=== PATIENT | female | born 1985 | race Caucasian/White ===

== ENCOUNTER → 2019-05-24 12:03 | Outpatient (CLI) | payer OTHER, SELFPAY ==
[2019-05-24 16:38] LABS: Amylase 34 U/L (25-115); Gamma Glutamyl Transpeptidase 26 U/L (5-55); Lipase 144 u/L (73-393)
[2019-05-25 23:37] LABS: H. pylori Breath Test Negative (Negative)
== END ==
PROVIDERS: Visit Provider Nurse Practitioner Family
DX: R10.10 Upper abdominal pain, unspecified (principal); R10.13 Epigastric pain
CPT/HCPCS: 36415; 82150; 82977; 83013; 83690

== ENCOUNTER → 2019-06-02 09:18 | Outpatient (CLI) | payer OTHER, SELFPAY ==
--- NOTE | 2019-06-02 09:24 | MR_ITS ---
PROCEDURE: MR ABDOMEN WO/W CON CLINICAL INDICATION: LIVER MASSES COMPARISON: ABDPELW/O CT ABD PELVIS W/O CONTRAST from 06/04/2014 RUQ US RUQ-(ABD LTD)1ORGAN/QUAD/FU from 06/09/2014 CT ABDOMEN PELVIS WO CON from 05/23/2019 TECHNIQUE: Routine multi-echo and multiplanar images including inphase and out of phase images and contrasted images with arterial and delayed venous imaging. FINDINGS: Again seen are the 4 hepatic lesions the largest in the right hepatic lobe is 4.0 centimeters. On the initial arterial phase images there is the typical peripheral interrupted nodular enhancement pattern with gradual complete opacification on delayed images although the larger right hepatic lobe lesion does not completely opacified on the most delayed contrasted images. Pancreas, spleen, adrenal glands and kidneys are otherwise normal except there is a 5.0 millimeter round cyst involving the lower pole area of the left kidney. There is no abnormal adenopathy or ascites. IMPRESSION: The liver lesions as described above are consistent with cavernous hemangiomas. Dictated by: Baltazar Hernandez 06/02/2019 11:17 Electronically signed by Baltazar Hernandez in [place] 06/02/2019 11:17
== END ==
PROVIDERS: PCP Family Medicine; Visit Provider Nurse Practitioner Family
DX: R16.0 Hepatomegaly, not elsewhere classified (principal)
CPT/HCPCS: 74183; A9576

== ENCOUNTER 2020-01-09 17:41 | Emergency (ER) | payer OTHER, SELFPAY ==
[2020-01-09 18:12] VITALS: BP 132/90; PULSE 86; RESP 20; TEMP 36.9; O2SAT 97; BMI 38.7
--- NOTE | 2020-01-09 18:31 | HMH.EDUTC ---
[facility] [place] Disposition Clinical Impression: Migraine headache Qualifiers: Migraine type: with aura Status migrainosus presence: without status migrainosus Intractability: not intractable Qualified Code(s): G43.109 - Migraine with aura, not intractable, without status migrainosus Disposition: Home, Self-Care Condition on Discharge: Good Instructions: DI for Migraine Additional Instructions: Follow up with your regular doctor. GO TO THE ER FOR ANY WORSENING SYMPTOMS OR CONCERNS Prescriptions: SUMAtriptan succinate [Imitrex] 50 mg PO DAILYP PRN #20 tab PRN Reason: Migraine Headache Transmission Status: Received by [id number] Referrals: Russ Colby MD [Primary Care Provider] - Time of Disposition: 19:13 Medical Decision Making - Medical Records Medical records reviewed: No: I reviewed the patient's medical records. - Dell Inquiry Pt receiving controlled substance: No Vital Signs: 01/09/20 18:12 01/09/20 18:54 Temperature 98.4 F 98.4 F Temperature Source Oral Pulse Rate 86 Pulse Rate [Left Brachial] 86 Respiratory Rate 20 20 Blood Pressure 132/90 Blood Pressure [Left Arm] 132/90 Blood Pressure Mean [Left Arm] 104 Blood Pressure Source [Left Arm] Automatic Cuff Blood Pressure Position [Left Arm] Sitting 02 Sat by Pulse Oximetry 97 Oxygen Delivery Method Room Air Orders (Tests/Meds): ED MEDICATIONS Discontinued Medications Generic Name Dose Route Start Last Admin Trade Name Freq PRN Reason Stop Dose Admin Ketorolac Tromethamine 60 mg 01/09/20 18:35 01/09/20 18:46 Toradol 60mg/2ml Vial IM 01/09/20 18:36 60 mg ONCE ONE Administration Methylprednisolone Sodium Succinate 125 mg 01/09/20 18:35 01/09/20 18:45 Solu-Medrol 125mg/2ml Vial IM 01/09/20 18:36 125 mg ONCE ONE Administration Promethazine HCl 25 mg 01/09/20 18:35 01/09/20 18:46 Phenergan 25mg/Ml 1ml Vial IM 01/09/20 18:36 25 mg ONCE ONE Administration Sodium Chloride 25 ml 01/09/20 18:35 01/09/20 18:46 Sod Chlor 0.9% 25ml Bag IV 01/09/20 18:36 Not Given ONCE ONE [facility] [place] HPI - General Stated complaint: Migraine X 3 days Time Seen by Provider: 01/09/20 18:31 Mode of Arrival: Ambulatory Source of Information: Patient Limitations: No Limitations Description of Symptoms (Recalled from Triage Doc. by RN): PATIENT C/O MIGRAINE WITH NAUSEA AND LIGHT SENSITIVITY X 3 DAYS. STATES IT STARTED 2 DAYS AFTER STARTING NEW MEDS FOR FIBRO. SHE HAS TAKE TYLENOL AND MOTRIN AT HOME WITH NO RELIEF HEENT Symptoms (Recalled from RN notes): Yes Resp Symptoms (Recalled from RN notes): No Skin Symptoms (Recalled from RN notes): No MS Symptoms (Recalled from RN notes): No Functional Status (Recalled from RN notes): WNL - History of Present Illness Provider Complaint: She c/o migraine head ache symptoms for the past 3 days. She is out of the sumatriptan that she normally takes. - Related Data Previous Rx's Medication Instructions Recorded amoxicillin 500 mg capsule 500 mg PO Q12H 10 Days #20 cap 06/05/18 Ketorolac Tromethamine [Toradol 10 mg PO Q6H 5 Days #20 tab 05/23/19 10mg tablet] SUMAtriptan succinate [Imitrex] 50 mg PO DAILYP PRN #20 tab 01/09/20 Allergies Allergy/AdvReac Type Severity Reaction Status Date / Time No Known Allergies Allergy Verified 01/09/20 18:16 - Worker's Comp Is this a Worker's Comp case?: No [facility] History - Hepatitis A Screen Drug use history?: No High risk sexual behaviors?: No History of sexually transmitted infection?: No Currently employed?: No Childcare worker?: No Do you have indoor plumbing?: Yes Do you have electricity?: Yes Attestation statement:: This patient has been screened for Hepatitis A risk factors. I have reviewed the patient's past medical history: Yes Medical History: Reports:: Migraine Other Surgeries: Yes: Cholecystectomy, , Tubal Ligation Amputation: No Fractures: No - Social History Smokandra
[2020-01-09 18:54] VITALS: BP 132/90; PULSE 86; RESP 20; TEMP 36.9; O2SAT 97
== END 2020-01-09 19:26 | disposition home or self-care (01) ==
PROVIDERS: Emergency Provider Nurse Practitioner Family; PCP Family Medicine
DX: G43.109 Migraine with aura, not intractable, without status migrainosus (principal); F17.210 Nicotine dependence, cigarettes, uncomplicated
CPT/HCPCS: 96372; 99201

== ENCOUNTER 2020-05-28 18:33 | Emergency (ER) | payer OTHER, SELFPAY ==
[2020-05-28 18:50] VITALS: BP 137/84; PULSE 81; RESP 19; TEMP 36.9; O2SAT 99; BMI 37.3
--- NOTE | 2020-05-28 19:37 | HMH.EDUTC ---
[facility] [place] Disposition Clinical Impression: Migraine headache Qualifiers: Migraine type: unspecified Status migrainosus presence: without status migrainosus Intractability: not intractable Qualified Code(s): G43.909 - Migraine, unspecified, not intractable, without status migrainosus Disposition: Home, Self-Care Condition on Discharge: Good Instructions: Migraine -- Adult, DI for Migraine Additional Instructions: Go home and lay down and try to sleep off remainder of migraine headache *Follow up with your Family Doctor for further treatment and evaluation of migraine headaches Return if needed Straight to ER if any life threatening symptoms Referrals: Russ Colby MD [Primary Care Provider] - As needed Time of Disposition: 19:47 Medical Decision Making - Dell Inquiry Pt receiving controlled substance: No Dell was queried for this patient: No Vital Signs: 05/28/20 18:50 05/28/20 19:56 Temperature 98.4 F 98.4 F Temperature Source Oral Pulse Rate 81 Pulse Rate [Right Brachial] 81 Respiratory Rate 19 19 Blood Pressure 137/84 Blood Pressure [Right Arm] 137/84 Blood Pressure Mean [Right Arm] 101 Blood Pressure Source [Right Arm] Automatic Cuff Blood Pressure Position [Right Arm] Sitting 02 Sat by Pulse Oximetry 99 Oxygen Delivery Method Room Air Orders (Tests/Meds): ED MEDICATIONS Discontinued Medications Generic Name Dose Route Start Last Admin Trade Name Evelioq PRN Reason Stop Dose Admin Diphenhydramine HCl 25 mg 05/28/20 19:40 05/28/20 19:45 Diphenhydramine 50mg/Ml Vial IM 05/28/20 19:41 25 mg ONCE ONE Administration Ketorolac Tromethamine 60 mg 05/28/20 19:40 05/28/20 19:45 Ketorolac 60mg/2ml Vial IM 05/28/20 19:41 60 mg ONCE ONE Administration Ondansetron HCl 4 mg 05/28/20 19:40 05/28/20 19:45 Ondansetron 4mg Odt SL 05/28/20 19:41 4 mg ONCE ONE Administration Medical Decision Narrative: patient denies chance of States that she has had Torodol, zofran and benadryl in the past without complications or reactions Mother at the bedside Patient states that her headache is better after medication patient to be dcd home [facility] [place] HPI - General Stated complaint: migraine Time Seen by Provider: 05/28/20 19:37 Mode of Arrival: Ambulatory Source of Information: Patient Limitations: No Limitations Description of Symptoms (Recalled from Triage Doc. by RN): PATIENT C/O MIGRAINE X 2 DAYS HEENT Symptoms (Recalled from RN notes): Yes Resp Symptoms (Recalled from RN notes): No Skin Symptoms (Recalled from RN notes): No MS Symptoms (Recalled from RN notes): No Functional Status (Recalled from RN notes): WNL - History of Present Illness Provider Complaint: Patient states that she has a history of migraine headaches States that for the last 2 days she has been having a migraine States that she usually has one when she gets stressed and with the idays she has been under stress States that this migraine is like others she has had in the past that she has had to come in to get the migraine coctail - Related Data Home Medications Medication Instructions Recorded Confirmed Duloxetine HCl [Cymbalta] 30 mg PO DAILY 05/28/20 05/28/20 Allergies Allergy/AdvReac Type Severity Reaction Status Date / Time No Known Allergies Allergy Verified 01/09/20 18:16 - Worker's Comp Is this a Worker's Comp case?: No [facility] History - Hepatitis A Screen Drug use history?: No High risk sexual behaviors?: No History of sexually transmitted infection?: No Currently employed?: No Childcare worker?: No Do you have indoor plumbing?: Yes Do you have electricity?: Yes Attestation statement:: This patient has been screened for Hepatitis A risk factors. I have reviewed the patient's past medical history: Yes Medical History: Reports:: Migraine Other Surgeries: Yes: Cholecystectomy, , Tubal Ligation Amputation: No Fractures: No - Social History Sm
[2020-05-28 19:56] VITALS: BP 137/84; PULSE 81; RESP 19; TEMP 36.9; O2SAT 99
== END 2020-05-28 19:59 | disposition home or self-care (01) ==
PROVIDERS: Emergency Provider Nurse Practitioner; PCP Family Medicine
DX: G43.909 Migraine, unspecified, not intractable, without status migrainosus (principal); F17.210 Nicotine dependence, cigarettes, uncomplicated
CPT/HCPCS: 96372; 99201

== ENCOUNTER 2020-05-30 17:45 | Emergency (ER) | payer OTHER, SELFPAY ==
[2020-05-30 18:00] VITALS: BP 129/79; PULSE 94; RESP 20; TEMP 37; O2SAT 99; BMI 36.9
--- NOTE | 2020-05-30 18:22 | HMH.EDUTC ---
[facility] [place] Disposition Clinical Impression: Exposure to COVID-19 virus Disposition: Home, Self-Care Condition on Discharge: Good Instructions: Preventing the Spread of Coronavirus Discharge Instructions Additional Instructions: Drink plenty of fluids. Take tylenol for pain or fever. Follow up with your regular doctor. GO TO THE ER FOR ANY WORSENING SYMPTOMS Referrals: Russ Colby MD [Primary Care Provider] - Time of Disposition: 18:23 Medical Decision Making - Medical Records Medical records reviewed: No: I reviewed the patient's medical records. - Dell Inquiry Pt receiving controlled substance: No Vital Signs: 05/30/20 18:00 05/30/20 18:24 Temperature 98.6 F 98.6 F Temperature Source Oral Pulse Rate 94 H Pulse Rate [Right Brachial] 94 H Respiratory Rate 20 20 Blood Pressure 129/79 Blood Pressure [Right Arm] 129/79 Blood Pressure Mean [Right Arm] 95 Blood Pressure Source [Right Arm] Automatic Cuff Blood Pressure Position [Right Arm] Sitting 02 Sat by Pulse Oximetry 99 Oxygen Delivery Method Room Air Orders (Tests/Meds): ORDERS Category Date Time Status Covid-19 Nasal PCR Sendout [facility] 05/30/20 18:00 Received [facility] [place] HPI - General Stated complaint: COVID TEST Time Seen by Provider: 05/30/20 18:22 Mode of Arrival: Ambulatory Source of Information: Patient Limitations: No Limitations Description of Symptoms (Recalled from Triage Doc. by RN): PATIENT REQUESTING COVID TEST D/T EXPOSURE; DENIES SYMPTOMS HEENT Symptoms (Recalled from RN notes): No Resp Symptoms (Recalled from RN notes): No Skin Symptoms (Recalled from RN notes): No MS Symptoms (Recalled from RN notes): No Functional Status (Recalled from RN notes): WNL - History of Present Illness Provider Complaint: She was exposed to covid at her work. She is here to get a covid test. She denies any symptoms. - Related Data Home Medications Medication Instructions Recorded Confirmed Duloxetine HCl [Cymbalta] 30 mg PO DAILY 05/28/20 05/28/20 Allergies Allergy/AdvReac Type Severity Reaction Status Date / Time No Known Allergies Allergy Verified 01/09/20 18:16 - Worker's Comp Is this a Worker's Comp case?: No [facility] [place] History - Hepatitis A Screen Drug use history?: No High risk sexual behaviors?: No History of sexually transmitted infection?: No Currently employed?: No Childcare worker?: No Do you have indoor plumbing?: Yes Do you have electricity?: Yes Attestation statement:: This patient has been screened for Hepatitis A risk factors. I have reviewed the patient's past medical history: Yes Medical History: Reports:: Migraine Other Surgeries: Yes: Cholecystectomy, , Tubal Ligation Amputation: No Fractures: No - Social History Smoking Status: Current every day smoker Tobacco Type: cigarettes # Packs/Day (cigarettes): 1 Alcohol Intake: never Substance Use Type: denies use Occupational Status: other Housing: house Household Members: children Family Hx:: Stroke, Hypertension ROS Obtained: Yes All systems reviewed & no additional complaints - Constitutional Constitutional: Reports system reviewed and no additional complaints, except as docu - Eyes Eyes: Reports system reviewed and no additional complaints, except as docu - ENT Ears, Nose, Mouth, and Throat: Reports system reviewed and no additional complaints, except as docu - Cardiovascular Cardiovascular: Reports system reviewed and no additional complaints, except as docu - Respiratory Respiratory: Yes system reviewed and no additional complaints, except as docu - Gastrointestinal Gastrointestingal: Reports: system reviewed and no additional complaints, except as docu Physical Exam - General General appearance: alert, in no apparent distress - Head Head exam: atraumatic, normocephalic, normal inspection - Eye Eye exam: Present: normal appearance, PERRL, EOMI - ENT ENT exam: Present: normal ex
[2020-05-30 18:24] VITALS: BP 129/79; PULSE 94; RESP 20; TEMP 37; O2SAT 99
== END 2020-05-30 18:31 | disposition home or self-care (01) ==
PROVIDERS: Emergency Provider Nurse Practitioner Family; PCP Family Medicine
DX: Z20.828 Contact with and (suspected) exposure to other viral communicable diseases (principal); G43.909 Migraine, unspecified, not intractable, without status migrainosus
CPT/HCPCS: 99201; U0003; U0004

== ENCOUNTER → 2020-05-31 10:28 | Outpatient (CLI) | payer OTHER, SELFPAY ==
[2020-05-31 12:55] LABS: Coronavirus 19 IgG Antibody Negative (Negative); Coronavirus 19 IgM Antibody Negative (Negative)
== END ==
PROVIDERS: PCP Family Medicine; Visit Provider Nurse Practitioner Family
DX: Z03.818 Encounter for observation for suspected exposure to other biological agents ruled out (principal)
CPT/HCPCS: 86328

== ENCOUNTER → 2020-11-02 07:47 | Outpatient (CLI) | payer OTHER, SELFPAY ==
--- NOTE | 2020-11-02 07:53 | US_ITS ---
PROCEDURE: US ABDOMEN limited CLINICAL INDICATION: ABDOMINAL MASS COMPARISON: US RUQ US RUQ-(ABD LTD)1ORGAN/QUAD/FU from 03/14/2015 FINDINGS: There are multiple homogeneous solid masses within the abdominal wall. The largest masses in the right upper quadrant measuring 4.1 cm in length by 2.4 cm in with and 1.2 cm in thickness. It shows fairly well-defined the interface between the mass and the subcutaneous echogenicity. There are other smaller but similar appearing soft tissue masses with homogeneous echogenicity all slightly hyperechoic to the primarily fatty echogenicity of the subcutaneous tissue. The 2nd largest mass is in the inferior umbilical location measuring 2.8 cm in length by 1.5 x 1.1 cm. IMPRESSION: Multiple slightly hyperechoic solid masses with rather homogeneous echogenicity and multiple lipomas the is most likely possibility. Possibly follow-up CT scan of the abdomen and pelvis should be considered to better define the and topical appearance and overall number of the lesions. Dictated by: Dr. Clarke Acevedo MD 11/02/2020 13:51 Dr. Clarke Acevedo MD in [place] 11/02/2020 13:51
== END ==
PROVIDERS: PCP Family Medicine; Visit Provider Nurse Practitioner Family
DX: R19.07 Generalized intra-abdominal and pelvic swelling, mass and lump (principal)
CPT/HCPCS: 76700

== ENCOUNTER 2020-11-14 20:03 | Emergency (ER) | payer OTHER, SELFPAY ==
[2020-11-14 20:05] VITALS: BP 128/87; PULSE 94; RESP 18; TEMP 36.9; O2SAT 98; BMI 35.4
[2020-11-14 20:47] VITALS: BP 128/87; PULSE 94; RESP 18; TEMP 36.9; O2SAT 98
--- NOTE | 2020-11-14 20:47 | HMH.EDUTC ---
[facility] [place] Clinical Impression: Migraine Qualifiers: Migraine type: unspecified Status migrainosus presence: without status migrainosus Intractability: not intractable Qualified Code(s): G43.909 - Migraine, unspecified, not intractable, without status migrainosus Disposition: Home, Self-Care Condition on Discharge: Good Instructions: DI for Migraine Additional Instructions: Drink plenty of fluids. Take tylenol or ibuprofen for pain. Take the medications as directed. Follow up with your regular doctor. GO TO THE ER FOR ANY WORSENING SYMPTOMS Referrals: Russ Colby MD [Primary Care Provider] - Forms: Work/School Release Time of Disposition: 20:48 Medical Decision Making - Medical Records Medical records reviewed: No: I reviewed the patient's medical records. - Dell Inquiry Pt receiving controlled substance: No Vital Signs: 11/14/20 20:05 11/14/20 20:47 Temperature 98.4 F 98.4 F Temperature Source Oral Pulse Rate 94 H Pulse Rate [Right Brachial] 94 H Respiratory Rate 18 18 Blood Pressure 128/87 Blood Pressure [Right Arm] 128/87 Blood Pressure Mean [Right Arm] 100 Blood Pressure Source [Right Arm] Automatic Cuff Blood Pressure Position [Right Arm] Sitting 02 Sat by Pulse Oximetry 98 Oxygen Delivery Method Room Air Orders (Tests/Meds): ED MEDICATIONS Discontinued Medications Generic Name Dose Route Start Last Admin Trade Name Freq PRN Reason Stop Dose Admin Ketorolac Tromethamine 60 mg 11/14/20 20:20 11/14/20 20:35 Ketorolac 60mg/2ml Vial IM 11/14/20 20:21 60 mg ONCE ONE Administration Methylprednisolone Sodium Succinate 125 mg 11/14/20 20:20 11/14/20 20:35 Methylprednisolone Sod Succ 125mg Vial IM 11/14/20 20:21 125 mg ONCE ONE Administration Promethazine HCl 25 mg 11/14/20 20:21 11/14/20 20:35 Promethazine Hcl 25mg/Ml 1ml Vial IM 11/14/20 20:22 25 mg ONCE ONE Administration [facility] [place]PI - General Stated complaint: migrane Time Seen by Provider: 11/14/20 20:47 Mode of Arrival: Ambulatory Source of Information: Patient Limitations: No Limitations Description of Symptoms (Recalled from Triage Doc. by RN): PATIENT C/O MIGRAINE WITH NAUSEA AND LIGHT-SENSITIVITY X 3 DAYS HEENT Symptoms (Recalled from RN notes): Yes Resp Symptoms (Recalled from RN notes): No Skin Symptoms (Recalled from RN notes): No MS Symptoms (Recalled from RN notes): No Functional Status (Recalled from RN notes): WNL - History of Present Illness Provider Complaint: She states that she has had a migraine headache since yesterday. She has a history of migraine. She states that her imitrex has not helped today, even after taking the maximum dose earlier. - Related Data Home Medications Medication Instructions Recorded Confirmed Duloxetine HCl [Cymbalta] 120 mg PO DAILY 05/28/20 11/14/20 Allergies Allergy/AdvReac Type Severity Reaction Status Date / Time No Known Allergies Allergy Verified 01/09/20 18:16 - Worker's Comp Is this a Worker's Comp case?: No [facility] History - Hepatitis A Screen Drug use history?: No High risk sexual behaviors?: No History of sexually transmitted infection?: No Currently employed?: No Childcare worker?: No Do you have indoor plumbing?: Yes Do you have electricity?: Yes Attestation statement:: This patient has been screened for Hepatitis A risk factors. I have reviewed the patient's past medical history: Yes Medical History: Reports:: Migraine Other Surgeries: Yes: Cholecystectomy, , Tubal Ligation Amputation: No Fractures: No - Social History Smoking Status: Current every day smoker Tobacco Type: cigarettes # Packs/Day (cigarettes): 1 Alcohol Intake: never Substance Use Type: denies use Occupational Status: other Housing: house Household Members: children Family Hx:: Stroke, Hypertension ROS Obtained: Yes All systems reviewed & no additional complaints - Constitutional Constitut
== END 2020-11-14 20:50 | disposition home or self-care (01) ==
PROVIDERS: Emergency Provider Nurse Practitioner Family; PCP Family Medicine
DX: G43.909 Migraine, unspecified, not intractable, without status migrainosus (principal)
CPT/HCPCS: 96372; 99202; G0463

== ENCOUNTER 2020-11-15 16:04 | Emergency (ER) | payer OTHER, SELFPAY ==
[2020-11-15 16:05] VITALS: BP 162/72; PULSE 74; RESP 20; TEMP 36.8; O2SAT 98; BMI 36.9
[2020-11-15 16:17] VITALS: BP 162/72; PULSE 91; O2SAT 97
[2020-11-15 16:31] VITALS: BP 123/67; PULSE 89; O2SAT 99
[2020-11-15 17:01] VITALS: BP 106/63; PULSE 86; O2SAT 98
--- NOTE | 2020-11-15 17:14 | HMH.EDGENADL ---
ED Disposition Clinical Impression: Migraine Disposition: Home, Self-Care Condition on Discharge: Good Instructions: Migraine -- Adult Prescriptions: Prochlorperazine Maleate [Compazine] 10 mg PO TID PRN 5 Days #15 tab PRN Reason: Headache Transmission Status: Received by [id number] Referrals: Russ Colby MD [Primary Care Provider] - - Critical Care Critical Care Time: No Attestation: On 11/15/20, the high probability of a clinically significant, sudden or life threatening deterioration of the following system(s) required my full and direct attention, intervention and personal management. The time I documented below is in addition to time spent performing reported procedures but includes the following listed in this critical care notation. Medical Decision Making - Medical Records Medical records reviewed: Yes: I reviewed the patient's medical records. - Dell Inquiry Pt receiving controlled substance: No Vital Signs: 11/15/20 16:05 11/15/20 16:17 11/15/20 16:31 Temperature 98.2 F Temperature Source Oral Pulse Rate 91 H 89 Pulse Rate [Left Radial] 74 Respiratory Rate 20 Blood Pressure 162/72 H 123/67 Blood Pressure [Right Arm] 162/72 H Blood Pressure Mean 85 Blood Pressure Mean [Right Arm] 102 Blood Pressure Source Blood Pressure Source [Right Arm] Automatic Cuff Blood Pressure Position Blood Pressure Position [Right Arm] Sitting 02 Sat by Pulse Oximetry 98 97 99 Oxygen Delivery Method Room Air 11/15/20 17:01 11/15/20 17:26 Temperature 98.2 F Temperature Source Oral Pulse Rate 86 86 Pulse Rate [Left Radial] Respiratory Rate 16 Blood Pressure 106/63 L 106/63 L Blood Pressure [Right Arm] Blood Pressure Mean 77 Blood Pressure Mean [Right Arm] Blood Pressure Source Automatic Cuff Blood Pressure Source [Right Arm] Blood Pressure Position Sitting Blood Pressure Position [Right Arm] 02 Sat by Pulse Oximetry 98 Oxygen Delivery Method Room Air Orders (Tests/Meds): ED MEDICATIONS Discontinued Medications Generic Name Dose Route Start Last Admin Trade Name Freq PRN Reason Stop Dose Admin Dexamethasone Sodium Phosphate 8 mg 11/15/20 16:15 11/15/20 16:49 Dexamethasone 4mg/Ml 1ml Vial IV 11/15/20 16:16 8 mg ONCE ONE Administration Diphenhydramine HCl 25 mg 11/15/20 16:15 11/15/20 16:49 Diphenhydramine 50mg/Ml Vial IV 11/15/20 16:16 25 mg ONCE ONE Administration Sodium Chloride 1,000 mls @ 999 mls/hr 11/15/20 16:15 11/15/20 16:49 Sod Chlor 0.9% 1000ml Bag IV 11/15/20 17:15 999 mls/hr .Q1H1M OJSH Administration Metoclopramide HCl 10 mg 11/15/20 16:15 11/15/20 16:49 Metoclopramide Hcl 10mg/2ml Vial IVP 11/15/20 16:16 10 mg ONCE ONE Administration Medical Decision Narrative: 35-year-old female presents after migraine headache. She says that it did get better but then it has gradually worsened. She has no distress and has normal neurological exam no concern for meningitis cerebral venous thrombosis subarachnoid hemorrhage stroke or any other concerns. Given migraine meds here and she had marked improvement requesting to be discharged. Plan to discharge home with Compazine. And and recommendation for follow-up General Adult HPI - General Stated complaint: migrane Time Seen by Provider: 11/15/20 16:05 - History of Present Illness HPI narrative: 35-year-old female presents with migraine headache. She says that it got better yesterday when she was at the urgent care center however to get worse. She now has dull frontal headache throbbing nonradiating worse with light and sound and has associated with nausea typical of her headache. No thunderclap onset no fever no chills. No numbness weakness or tingling arms or legs Onset (ago): day(s) (4) Severity: moderate Consistency: intermittent - Related Data Home Medications Medication Instructions Recorded Confirmed Dulox
[2020-11-15 17:26] VITALS: BP 106/63; PULSE 86; RESP 16; TEMP 36.8; O2SAT 100
== END 2020-11-15 17:27 | disposition home or self-care (01) ==
PROVIDERS: Emergency Provider Emergency Medicine; PCP Family Medicine
DX: G43.909 Migraine, unspecified, not intractable, without status migrainosus (principal); F17.210 Nicotine dependence, cigarettes, uncomplicated
CPT/HCPCS: 96365; 96375; 99281

== ENCOUNTER → 2020-12-04 10:16 | Outpatient (CLI) | payer OTHER, SELFPAY ==
--- NOTE | 2020-12-04 10:22 | CT_ITS ---
PROCEDURE: CT ABDOMEN PELVIS W CON CLINICAL INDICATION: ABN ABD ULTRASOUND, GENERALIZED ABD MASS Multiple abdominal soft tissue nodules Tender at times Lt and rt upper abd marked with BBs Abnormal US 11/03/20 COMPARISON: CT CT ABDOMEN PELVIS WO CON from 05/23/2019 US US ABDOMEN COMPLETE from 11/02/2020 TECHNIQUE: IV Contrast: 75ML Isovue 370 Oral Contrast None Axial images obtained with sagittal and coronal reformats. All CT scans at the facility use one or more dose reduction, viz: automated exposure control, ma/kV adjustment per patient size (including targeted exams where dose is matched to indication, i.e. head), or iterative reconstruction technique. FINDINGS: LOWER THORAX: No acute finding ABDOMEN & PELVIS: There are multiple enhancing lesions of the liver. These have the appearance hemangiomas measuring 12 mm segment 2, 21 mm segment 4A, 48 mm, 21 mm segment 5. These do not appear significantly changed. Prior cholecystectomy. The spleen, adrenal glands, pancreas, and kidneys have an unremarkable appearance other than a 1 cm left renal cyst. No intestinal obstruction or free air. Unremarkable appearing appendix. 2.8 cm right ovarian cyst. Minimal amount of fluid in the cul-de-sac. Multiple abdominal wall masses are reported as seen and described on previous ultrasound. BBs are placed along at least 2 of these palpable abnormalities 1 in the left upper quadrant and 1 in the right upper quadrant. No visible CT abnormalities are evident deep to these lesions. Only abdominal wall fat is noted. No abnormal fluid collections or solid mass is apparent. No acute bony anomalies apparent. There are few small sclerotic foci noted in the femurs and may represent bone islands. IMPRESSION: 1. No visible CT abnormality at the area of the placed BBs/palpable abnormalities. Only abdominal wall fat noted deep to the placed BBs/palpable abnormalities. Therefore, the abnormalities noted on ultrasound are consistent with lipomas. No solid lesions or fluid collections evident 2. Multiple hepatic hemangiomas Dictated by: Randal Miranda MD 12/05/2020 07:41 Randal Miranda MD in [facility] 12/05/2020 07:41
== END ==
PROVIDERS: PCP Family Medicine; Visit Provider Family Medicine
DX: R19.07 Generalized intra-abdominal and pelvic swelling, mass and lump (principal); R93.5 Abnormal findings on diagnostic imaging of other abdominal regions, including retroperitoneum
CPT/HCPCS: 74177; Q9967

== ENCOUNTER → 2021-06-07 19:51 | Outpatient (CLI) | payer OTHER, SELFPAY | PROVIDERS: PCP Family Medicine; Visit Provider Nurse Practitioner Family | DX: Z20.822 Contact with and (suspected) exposure to COVID-19 (principal) | CPT/HCPCS: C9803; U0003; U0005 ==

== ENCOUNTER → 2021-06-21 12:13 | Outpatient (CLI) | payer OTHER, SELFPAY | PROVIDERS: Visit Provider Nurse Practitioner | DX: U07.1 COVID-19 (principal) | CPT/HCPCS: C9803; U0003; U0005 ==

== ENCOUNTER 2021-08-03 20:04 | Emergency (ER) | payer BC, OTHER, SELFPAY ==
[2021-08-03 20:05] VITALS: BP 127/85; PULSE 86; RESP 18; TEMP 37.2; O2SAT 98; BMI 37.6
--- NOTE | 2021-08-03 20:27 | XR_ITS ---
PROCEDURE INFORMATION: Exam: XR Left Forearm Exam date and time: 08/03/2021 8:27 PM Age: 36 years old Clinical indication: Injury or trauma; Other: Dog bite; Arm, lower; Left; Injury date: 08/03/2021; Additional info: Assess for fb dog bite to forearm multiple lacerations TECHNIQUE: Imaging protocol: XR Left forearm. Views: 2 views. COMPARISON: No relevant prior studies available. FINDINGS: Bones/joints: Normal. Soft tissues: No radiopaque foreign body. IMPRESSION: No radiopaque foreign body.
--- NOTE | 2021-08-03 20:35 | HMH.EDGENADL ---
ED Disposition Clinical Impression: Bite by animal Dog bite Qualifiers: Encounter type: initial encounter Qualified Code(s): W54.0XXA - Bitten by dog, initial encounter Disposition: Home, Self-Care Condition on Discharge: Good Prescriptions: Amoxicillin/Potassium Clav [Augmentin 875-125 Tablet] 1 tab PO Q12H 7 Days #14 tab Transmission Status: Pending to [id number] Referrals: Russ Colby MD [Primary Care Provider] - - Critical Care Critical Care Time: No Attestation: On 08/03/21, the high probability of a clinically significant, sudden or life threatening deterioration of the following system(s) required my full and direct attention, intervention and personal management. The time I documented below is in addition to time spent performing reported procedures but includes the following listed in this critical care notation. Medical Decision Making - Medical Records Medical records reviewed: Yes: I reviewed the patient's medical records. - Dell Inquiry Pt receiving controlled substance: No Vital Signs: 08/03/21 20:05 Temperature 98.9 F Temperature Source Oral Pulse Rate [Left Radial] 86 Respiratory Rate 18 Blood Pressure [Right Arm] 127/85 Blood Pressure Mean [Right Arm] 99 Blood Pressure Source [Right Arm] Automatic Cuff Blood Pressure Position [Right Arm] Sitting 02 Sat by Pulse Oximetry 98 Oxygen Delivery Method Room Air Orders (Tests/Meds): ED MEDICATIONS Discontinued Medications Generic Name Dose Route Start Last Admin Trade Name Freq PRN Reason Stop Dose Admin Acetaminophen 1,000 mg 08/03/21 20:28 08/03/21 20:44 Acetaminophen 500mg Tab PO 08/03/21 20:29 1,000 mg ONCE ONE Administration Amoxicillin/Clavulanate Potassium 1 each 08/03/21 20:53 Amoxicillin/Pot Clavulan 500mg Tablet PO 08/03/21 20:54 ONCE ONE Ibuprofen 400 mg 08/03/21 20:28 08/03/21 20:45 Ibuprofen 400 Mg Tablet PO 08/03/21 20:29 400 mg ONCE ONE Administration Tetanus/Diphtheria Toxoids 0.5 ml 08/03/21 20:27 08/03/21 20:45 Tetanus-Diphth Toxoid, Adult 0.5ml Syr IM 08/03/21 20:28 0.5 ml .ONCE ONE Administration ORDERS Category Date Time Status XR forearm LT 2V Stat Exams 08/03/21 20:27 Taken Medical Decision Narrative: Patient is a healthy 36-year-old female presenting with a chief complaint of left forearm dog bite. Patient is hemodynamically stable and nontoxic-appearing on exam. Physical exam reveals multiple penetrating wounds secondary to dog bite on volar and dorsal surface of left forearm. Patient is neurovascularly intact and has no motor or sensory deficit. Wounds are hemostatic. Wounds were irrigated, patient's tetanus was updated. XR of forearm shows no retained FB. Patient was prescribed Augmentin and given first dose in the ED. She was counseled on recognizing signs of infection, given wound care instructions and strict return precautions. She was discharged in stable condition. General Adult HPI - General Stated complaint: dog bite to L forearm Time Seen by Provider: 08/03/21 20:15 - History of Present Illness HPI narrative: Roselyn is a 36-year-old female without past significant medical history presenting for chief complaint of dog bite on her left arm. She was bitten by her dog who she believes is fully vaccinated. Dog is less than 1-year-old. The dog bit the patient during feeding. Patient denies any other injuries, falling, hitting her head or LOC. No motor or sensory deficits reported. No other complaints. - Related Data Home Medications Medication Instructions Recorded Confirmed Duloxetine HCl [Cymbalta] 120 mg PO DAILY 05/28/20 11/14/20 Previous Rx's Medication Instructions Recorded Prochlorperazine Maleate 10 mg PO TID PRN 5 Days #15 tab 11/15/20 [Compazine] Amoxicillin/Potassium Clav 1 tab PO Q12H 7 Days #14 tab 08/03/21 [Augmentin 875-125 Tablet] Allergies Allergy/AdvReac Type Severity Reaction
--- NOTE | 2021-08-03 21:09 | PC.NURSE ---
WOUND DRESSED AND DETAILED INSTRUCTIONS GIVEN ON THE CLEAN AND CARE OF THE WOUND.
[2021-08-03 21:11] VITALS: BP 127/85; PULSE 85; RESP 16; TEMP 37.2; O2SAT 98
== END 2021-08-03 21:14 | disposition home or self-care (01) ==
PROVIDERS: Emergency Provider Emergency Medicine; PCP Family Medicine
DX: S51.832A Puncture wound without foreign body of left forearm, initial encounter (principal); W54.0XXA Bitten by dog, initial encounter; Z23 Encounter for immunization
CPT/HCPCS: 73090; 90714; 99281; 99282

== ENCOUNTER → 2021-09-28 07:54 | Outpatient (CLI) | payer BC, SELFPAY ==
[2021-09-28 07:58] LABS: MANUAL DIFFERENTIAL MANUAL DIFFERENTIAL (MANUAL DIFF)
[2021-09-28 08:32] LABS: Basophils # 0.3 K/mm3 (0-0.2); Basophils % 2.5 % (0.1-2.0); Eosinophils # 0.3 K/mm3 (0.0-0.4); Eosinophils % 2.2 % (0.1-12.0); Hematocrit 41.2 % (37.0-47.0); Hemoglobin 13.9 g/dL (12.2-16.2); Lymphocytes # 3.3 K/mm3 (0.7-4.5); Lymphocytes % 27.2 % (10-50); Mean Corpuscular HGB Conc 33.8 g/dL (31.8-35.4); Mean Corpuscular Hemoglobin 30.5 pg (27.0-31.2); Mean Corpuscular Volume 90.4 fl (81-99); Mean Platelet Volume 7.7 fl (7.4-10.4); Monocytes # 0.6 K/mm3 (0.1-1.0); Monocytes % 5.1 % (1.7-9.3); Neutrophils # 7.5 K/mm3 (1.8-7.8); Neutrophils % 62.9 % (37.0-80.0); Platelet Count 332 K/mm3 (142-424); Red Blood Count 4.56 M/mm3 (4.20-5.40); Red Cell Distribution Width 13.5 % (11.5-17.5)
[2021-09-28 08:42] LABS: Chloride 104 mmol/L (98-107); Sodium 137 mmol/L (136-145)
[2021-09-28 08:45] LABS: Blood Urea Nitrogen 16 mg/dl (7-17); Calcium 8.8 mg/dl (8.4-10.2); Carbon Dioxide 27 mmol/L (22.0-30.0); Estimated Glomerular Filt Rate 63 ml/min (>60); GFR (African American) 76 ML/MIN (>60); Glucose 89 mg/dl (74-100)
[2021-09-28 14:08] LABS: Lymphocytes % 34 % (10-50); Monocytes % 4 % (2-9); Neutrophils % 62 % (42-76); Platelet Estimate Normal; RBC Morphology Normal; Total Cells Counted 100
== END ==
LOC: LAB 07:55
PROVIDERS: PCP Nurse Practitioner Family; Visit Provider Surgery
DX: Z01.812 Encounter for preprocedural laboratory examination (principal); Z11.52 Encounter for screening for COVID-19; D17.1 Benign lipomatous neoplasm of skin and subcutaneous tissue of trunk
CPT/HCPCS: 36415; 80048; 85007; 85014; 85018; 85048; 85049; C9803; U0003; U0005

== ENCOUNTER 2021-09-30 07:25 | Day surgery (SDC) | payer BC, SELFPAY ==
[2021-09-30 05:52] VITALS: BMI 40.8
[2021-09-30 07:38] VITALS: BP 136/80; PULSE 75; RESP 18; TEMP 37.2; O2SAT 96
--- NOTE | 2021-09-30 08:08 | P.PN_ITS ---
[facility] Anesthesia Checklist - Structural Data Admitted From: Home Planned Operative Procedure/s: excision lipoma abdoman Consent for Planned Operative Procedure(s) Verified: Yes - Additional verifications Anesthesia Reactions: No Hx Blood Transfusions: No Blood Transfusion Reaction: No - Airway Assessment C-Spine Mobility Assessed: Yes TMJ Mobility Assessed: Yes Dentition: Good Dentition - Neurological Assessment Level of Consciousness: Awake, Alert, Appropriate - Anesthesia Plan Anesthesia Risk discussed: Yes Anesthesia Plan: Verified ASA Class: II Anesthesia Type: General [facility] History I have reviewed the patient's past medical history: Yes Medical History: Reports:: Migraine Denies:: Cancer, Diabetes Mellitus Type 1, Diabetes Mellitus Type 2, Internal Pacemaker, MRSA, Seizures *Have you ever received a pneumonia vaccine?: No *Have you received a flu vaccine this season?: No Other Medical History: Denies: Blood Transfusion Reaction Anesthesia experience/problems:: none Other Surgeries: Yes: Cholecystectomy, , Tubal Ligation. No: Pacemaker Amputation: No Fractures: No - *Social History Last grade of school completed: High school graduate Smoking Status: Former smoker Tobacco Type: cigarettes # Packs/Day (cigarettes): 1 #Yrs smoked (if former smoker): 15 Smoking End Date: 2016 Alcohol Intake: current Alcohol Intake Frequency:: holidays/special occasions only Substance Use Type: denies use *Occupational Status:: employed Housing: house Household Members: spouse, family *Travel in the last 8 weeks: None Family Hx:: No significant family history
[2021-09-30 08:22] LABS: Urine Pregnancy, HCG Qual. Negative (Negative)
--- NOTE | 2021-09-30 08:34 | HMH.GSPN ---
Subjective Narrative: Patient arrived for planned excision of abdominal wall, lipomas . She is without complaints. Her preoperative testing revealed a temperature of 99.0 ?F. White blood cell count is 12,000. Progress Note: A&P Assessment and Plan for All Diagnoses:: Given her mild leukocytosis, mild fever, and intense rash I feel the best plan of action would be to cancel the case. This will be rescheduled. Exam Vital signs and Labs for Last 24 Hours: Temp Pulse Resp BP Pulse Ox 99.0 F 75 18 136/80 96 09/30/21 07:38 09/30/21 07:38 09/30/21 07:38 09/30/21 07:38 09/30/21 07:38 Laboratory Results - last 24 hr 09/30/21 07:30: Urine HCG, Qual Negative I & O for Last 24 hours: Intake & Output 09/27/21 09/28/21 09/29/21 09/30/21 11:59 11:59 11:59 11:59 Weight 277 lb - *Routine Abdominal Exam Comments: She has a diffuse that intense macular rash on her trunk including her abdomen and thighs.
--- NOTE | 2021-09-30 08:44 | SUR.PREOP ---
0825: Pt. case cancelled per Dr. Lynch due to pt. developing a new rash this morning of unknown origin.
== END 2021-09-30 08:35 | disposition home or self-care (01) ==
LOC: OR 07:26
PROVIDERS: PCP Nurse Practitioner Family; Visit Provider Surgery
PROC: (CPT 11400; principal; 2021-09-30 08:30)
DX: Z53.8 Procedure and treatment not carried out for other reasons (principal); D17.1 Benign lipomatous neoplasm of skin and subcutaneous tissue of trunk
CPT/HCPCS: 11400; 81025

== ENCOUNTER 2022-01-27 16:18 | Emergency (ER) | payer BC, SELFPAY ==
[2022-01-27 16:55] VITALS: BP 120/75; PULSE 72; RESP 18; TEMP 36.6; O2SAT 97; BMI 39.5
[2022-01-27 17:13] VITALS: BP 120/75; PULSE 72; RESP 18; TEMP 36.6; O2SAT 97
--- NOTE | 2022-01-27 17:40 | HMH.EDUTC ---
[facility] Disposition Clinical Impression: Viral syndrome Disposition: Home, Self-Care Condition on Discharge: Good Instructions: DI for COVID-19 (Suspected or Confirmed ), Preventing the Spread of Coronavirus Discharge Instructions Additional Instructions: Drink plenty of fluids. Take tylenol or ibuprofen for pain or fever. Take the medications as directed. Follow up with your regular doctor. GO TO THE ER FOR ANY WORSENING SYMPTOMS Quarantine until you know the results of your covid-19 test. Notify your school or workplace of your results and follow their instructions regarding return to work/school. Prescriptions: Ondansetron [Zofran 4mg ODT] 4 mg PO Q8HP PRN #20 tab PRN Reason: Nausea [facility] Benzonatate [Benzonatate 100mg cap] 100 mg PO TIDP PRN #30 cap PRN Reason: Cough Transmission Status: [facility] Referrals: Kristen Ortega APRN [Primary Care Provider] - Forms: Work/School Release Time of Disposition: 17:40 Medical Decision Making - Medical Records Medical records reviewed: No: I reviewed the patient's medical records. - Dell Inquiry Pt receiving controlled substance: No Vital Signs: 01/27/22 16:55 01/27/22 17:13 Temperature 97.9 F 97.9 F Temperature Source Oral Pulse Rate 72 Pulse Rate [Left Brachial] 72 Respiratory Rate 18 18 Blood Pressure 120/75 Blood Pressure [Left Arm] 120/75 Blood Pressure Mean [Left Arm] 90 Blood Pressure Source [Left Arm] Automatic Cuff Blood Pressure Position [Left Arm] Sitting 02 Sat by Pulse Oximetry 97 Oxygen Delivery Method Room Air - Lab Data Lab results reviewed: Yes: I reviewed the patient's lab results. [facility] HPI - General Stated complaint: Exposed,Covid Test,SOB,QUINONES Time Seen by Provider: 01/27/22 17:00 Mode of Arrival: Ambulatory Source of Information: Patient Limitations: No Limitations Description of Symptoms (Recalled from Triage Doc. by RN): PATIENT C/O HEADACHE, SOA, AND CHEST CONGESTION. EXPOSED TO COVID ON THURSDAY HEENT Symptoms (Recalled from RN notes): Yes Resp Symptoms (Recalled from RN notes): Yes Skin Symptoms (Recalled from RN notes): No MS Symptoms (Recalled from RN notes): No Functional Status (Recalled from RN notes): WNL - History of Present Illness Provider Complaint: She states that for the past 2 day she has had sinus congestion, body aches, chills and she has felt bad. - Related Data Home Medications Medication Instructions Recorded Confirmed duloxetine 60 mg capsule,delayed 60 mg PO BID cap 09/10/21 09/30/21 release gabapentin 300 mg capsule 300 mg PO BID cap 09/10/21 09/30/21 Previous Rx's Medication Instructions Recorded Benzonatate [Benzonatate 100mg 100 mg PO TIDP PRN #30 cap 01/27/22 cap] Ondansetron [Zofran 4mg ODT] 4 mg PO Q8HP PRN #20 tab 01/27/22 Allergies Allergy/AdvReac Type Severity Reaction Status Date / Time No Known Allergies Allergy Verified 09/30/21 07:36 - Worker's Comp Is this a Worker's Comp case?: No [facility] History - Hepatitis A Screen Attestation statement:: This patient has been screened for Hepatitis A risk factors. I have reviewed the patient's past medical history: Yes Medical History: Reports:: Migraine Denies:: Cancer, Diabetes Mellitus Type 1, Diabetes Mellitus Type 2, Internal Pacemaker, MRSA, Seizures Other Medical History: Denies: Blood Transfusion Reaction Other Surgeries: Yes: Cholecystectomy, , Tubal Ligation. No: Pacemaker Amputation: No Fractures: No - Social History Smoking Status: Former smoker Tobacco Type: cigarettes # Packs/Day (cigarettes): 1 #Yrs smoked (if former smoker): 15 Alcohol Intake: current Alcohol Intake Frequency:: holidays/special occasions only Substance Use Type: denies use Occupational Status: employed Housing: house Household Members: spouse, family Family Hx:: No significant family hist
== END 2022-01-27 17:55 | disposition home or self-care (01) ==
PROVIDERS: Emergency Provider Nurse Practitioner Family; PCP Nurse Practitioner Family
DX: B34.9 Viral infection, unspecified (principal); Z20.822 Contact with and (suspected) exposure to COVID-19
CPT/HCPCS: 99212; C9803; G0463; U0003; U0005

== ENCOUNTER 2022-02-13 07:59 | Emergency (ER) | payer BC, SELFPAY ==
[2022-02-13 08:05] VITALS: BP 113/69; PULSE 74; RESP 20; TEMP 36.7; O2SAT 97; BMI 39.5
--- NOTE | 2022-02-13 08:28 | EXP.UTC ---
Discharge Plan Disposition Patient Disposition: Home, Self-Care Condition: Good Prescriptions Prescriptions: No Action gabapentin 300 mg capsule 300 mg PO BID duloxetine 60 mg capsule,delayed release(DR/EC) 60 mg PO BID Referrals Follow up/Referrals: Pilar Michel MD [Primary Care Provider] - See instructions Activity Restrictions/Add. Instructions Additional Instructions/Restrictions: Go home and sleep off remainder of migraine headache Follow up with your Family Doctor if migraine returns for discussion of treatment Return if needed Straight to ER if any life threatening symptoms Clinical Impressions Clinical Impression: Migraine headache Qualifiers: Migraine type: unspecified Status migrainosus presence: without status migrainosus Intractability: not intractable Qualified Code(s): G43.909 - Migraine, unspecified, not intractable, without status migrainosus Instructions Patient Instructions: Migraine -- Adult, DI for Migraine Discharge ED Provider: Rani Terry [facility] General Stated complaint: migraine Mode of Arrival: Ambulatory Source of Information: Patient Limitations: No Limitations Time Seen by Provider: 02/13/22 08:28 Description of Symptoms (Recalled from Triage Doc. by RN): PATIENT C/O MIGRAINE THAT STARTED YESTERDAY HEENT Symptoms (Recalled from RN notes): Yes Resp Symptoms (Recalled from RN notes): No Skin Symptoms (Recalled from RN notes): No MS Symptoms (Recalled from RN notes): No Functional Status (Recalled from RN notes): WNL History of Present Illness Provider Complaint: Patient state that she has a history of Migraine headaches States that her headache started yesterday and has continued States that she gets these sometimes and has to come in and get the Migraine treatment to knock it out Related Data Home Medications Medication Instructions Recorded Confirmed duloxetine 60 mg capsule,delayed 60 mg PO BID . 09/10/21 02/13/22 release gabapentin 300 mg capsule 300 mg PO BID PAIN 09/10/21 02/13/22 Allergies Allergy/AdvReac Type Severity Reaction Status Date / Time No Known Allergies Allergy Verified 09/30/21 07:36 Worker's Comp Is this a Worker's Comp case?: No PFSH PFSH Surgical History (Updated 02/13/22 @ 08:27 by Aubree Pacheco RN) History of section History of cholecystectomy History of tubal ligation Social History (Updated 02/13/22 @ 08:27 by Aubree Pacheco RN) Smoking Status: Former smoker pack-years: 15 second hand exposure: No alcohol intake: current substance use type: denies use current occupational status: employed Travel in the last 8 weeks: None household members: spouse and family housing: house current occupation: 3M current occupational exposures/hazards: No caffeine: Yes ROS Obtained: Yes All systems reviewed & no additional complaints except as documented and Yes Systems reviewed as appropriate & no additional complaints except as documented Constitutional Constitutional: Reports system reviewed and no additional complaints, except as documented, Reports as per HPI and Reports headache(s) Eyes Eyes: Reports system reviewed and no additional complaints, except as documented, Reports as per HPI, Denies blurry vision, Denies change in vision and Denies loss of vision ENT Ears, Nose, Mouth, and Throat: Reports system reviewed and no additional complaints, except as documented, Reports as per HPI and Reports headache(s) Cardiovascular Cardiovascular: Reports system reviewed and no additional complaints, except as documented and Reports as per HPI Neurologic Neurologic: Reports headache(s) and Denies loss of vision Physical Exam General General appearance: alert and in no apparent distress Eye Eye exam: Present normal appearance, PERRL and EOMI Respiratory Respiratory exam: Present normal lung sounds bilaterally; Absent respiratory distress or wheezes Cardiovascular Cardiovascular exam: Prese
[2022-02-13 08:48] VITALS: BP 113/69; PULSE 74; RESP 20; TEMP 36.7; O2SAT 97
== END 2022-02-13 08:56 | disposition home or self-care (01) ==
PROVIDERS: Emergency Provider Nurse Practitioner; PCP Family Medicine
DX: G43.909 Migraine, unspecified, not intractable, without status migrainosus (principal)
CPT/HCPCS: 96372; 99212; G0463

== ENCOUNTER 2022-06-25 08:32 | Emergency (ER) | payer BC, OTHER, SELFPAY ==
[2022-06-25 08:32] VITALS: BP 137/72; PULSE 78; RESP 20; TEMP 36.6; O2SAT 94; BMI 36.9
--- NOTE | 2022-06-25 08:45 | XR_ITS ---
FINAL REPORT CLINICAL HISTORY: fall down wooden basement steps today, pain FINDINGS: Two views of the right femur were obtained. No priors are available for comparison. There is no acute fracture or dislocation. The joint spaces appear normal. No soft tissue abnormality is identified. IMPRESSION: No acute process. Reviewed, Interpreted and Dictated by Valentine Pantoja MD Transcribed by Sangeeta Leonard Authenticated and [facility]
--- NOTE | 2022-06-25 08:45 | XR_ITS ---
FINAL REPORT CLINICAL HISTORY: fall down wooden basement steps today, pain FINDINGS: AP, oblique, and lateral views of the right wrist were obtained. There is no prior exam for comparison. There is no acute fracture or dislocation. The joint spaces are preserved. The soft tissues are normal. IMPRESSION: No acute osseous abnormality of the right wrist. If pain persists, MR is recommended. Reviewed, Interpreted and Dictated by Valentine Pantoja MD Transcribed by Sangeeta Leonard Authenticated and [facility]
--- NOTE | 2022-06-25 08:45 | XR_ITS ---
FINAL REPORT CLINICAL HISTORY: fall down wooden basement steps today, pain FINDINGS: AP and lateral views of the right tibia and fibula were obtained. There is no prior exam for comparison. There is no acute fracture of the right tibia or fibula. The knee and ankle appear intact. The soft tissues are normal. IMPRESSION: No acute osseous abnormality of the right tibia or fibula. Reviewed, Interpreted and Dictated by Valentine Pantoja MD Transcribed by Sangeeta Leonard Authenticated and [facility]
--- NOTE | 2022-06-25 08:45 | XR_ITS ---
FINAL REPORT CLINICAL HISTORY: fall down wooden basement steps today, pain FINDINGS: AP and lateral views of the right forearm are obtained. There is no prior exam for comparison. There is no acute osseous abnormality of the right forearm. The wrist and elbow are intact. There is dorsal soft tissue edema in the proximal forearm. IMPRESSION: No acute osseous abnormality of the right forearm. Reviewed, Interpreted and Dictated by Valentine Pantoja MD Transcribed by Sangeeta Leonard Authenticated and [facility]
--- NOTE | 2022-06-25 08:45 | XR_ITS ---
FINAL REPORT CLINICAL HISTORY: fall down wooden basement steps today, pain FINDINGS: AP, lateral and oblique views of the right knee were obtained. There is no prior exam for comparison. There is no acute osseous abnormality of the right knee. There is a bipartite patella. The joint space is preserved. The soft tissues are normal. There is no joint effusion. IMPRESSION: No acute osseous abnormality of the right knee. Reviewed, Interpreted and Dictated by Valentine Pantoja MD Transcribed by Sangeeta Leonard Authenticated and [facility]
--- NOTE | 2022-06-25 08:45 | XR_ITS ---
FINAL REPORT CLINICAL HISTORY: fall down wooden basement steps today, pain FINDINGS: AP, oblique, and lateral views of the right elbow were obtained. There is no prior exam for comparison. There is no acute fracture or dislocation. Joint space is preserved. There is no joint effusion or other soft tissue abnormality. IMPRESSION: No acute osseous abnormality of the right elbow. Reviewed, Interpreted and Dictated by Valentine Pantoja MD Transcribed by Sangeeta Leonard Authenticated and . [facility]
--- NOTE | 2022-06-25 08:45 | XR_ITS ---
FINAL REPORT CLINICAL HISTORY: fall down wooden basement steps today, pain FINDINGS: AP and frog leg views of the right hip were obtained. There is no prior exam for comparison. There is no acute fracture or dislocation. Joint space is preserved. Soft tissues are within normal limits. IMPRESSION: No acute osseous abnormality of the right hip. If pain persists, MR is recommended. Reviewed, Interpreted and Dictated by Valentine Pantoja MD Transcribed by Sangeeta Leonard Authenticated and [facility]
--- NOTE | 2022-06-25 08:46 | EXP.UTC ---
Discharge Plan Disposition Patient Disposition: Home, Self-Care Condition: Good Prescriptions Prescriptions: New ibuprofen [ibuprofen] 600 mg tablet 600 mg PO Q6HP PRN (Reason: Mild Pain) Qty: 30 0RF No Action gabapentin 300 mg capsule 300 mg PO BID duloxetine 60 mg capsule,delayed release(DR/EC) 60 mg PO DAILY Label Comments: TAKE 1 CAPSULE BY MOUTH TWICE DAILY Referrals Follow up/Referrals: Joseph Lopez JR, MD [Physician] - See instructions Kristen Ortega APRN [Primary Care Provider] - See instructions Activity Restrictions/Add. Instructions Additional Instructions/Restrictions: Rest the extremity, apply ice for 15 minutes as tolerated three or four times per day, Wear the sunny wrap for compression, Elevate the extremity as tolerated while you are resting. Take ibuprofen for pain. I sent in a prescription to your pharmacy. Follow up with Dr. Lopez (orthopedics). I put in a referral but you need to call his office and schedule an appointment. Follow up with your regular doctor. GO TO THE ER FOR ANY WORSENING SYMPTOMS Clinical Impressions Clinical Impression: Fall, Arm pain, right, Leg pain, right Stand Alone Forms Stand Alone Forms: Work/School Release Discharge ED Provider: Omar Hurtado [facility] General Stated complaint: Fall@home 06/25 0800 RT leg RT arm pain Time Seen by Provider: 06/25/22 08:44 History of Present Illness Provider Complaint: She states that she fell down her stairs this morning. She came down on her right forearm, elbow and right upper leg. She has bruising of her right elbow and right hip area. She is able to walk fine, but moving her arm and leg causes her pain to be worse. She denies any head injury. She denies any neck injury or neck pain. Related Data Home Medications Medication Instructions Recorded Confirmed gabapentin 300 mg capsule 300 mg PO BID PAIN 09/10/21 06/25/22 duloxetine 60 mg capsule,delayed 60 mg PO DAILY mood 06/25/22 06/25/22 release Previous Rx's Medication Instructions Recorded ibuprofen 600 mg tablet 600 mg PO Q6HP PRN Mild Pain #30 06/25/22 tabs Allergies Allergy/AdvReac Type Severity Reaction Status Date / Time No Known Allergies Allergy Verified 06/25/22 08:51 [facility] Disclaimer: The information contained in this section may have been updated after the patient was seen, as this information can be updated by other users. Surgical History History of section History of cholecystectomy History of tubal ligation Social History Smoking Status: Former smoker pack-years: 15 second hand exposure: No alcohol intake: current substance use type: denies use current occupational status: employed Travel in the last 8 weeks: None household members: spouse and family housing: house current occupation: 3M current occupational exposures/hazards: No caffeine: Yes ROS Obtained: Yes All systems reviewed & no additional complaints except as documented Constitutional Constitutional: Denies chills and Denies fever(s) Eyes Eyes: Denies eye discharge ENT Ears, Nose, Mouth, and Throat: Denies dizziness, Denies otalgia and Denies sore throat Cardiovascular Cardiovascular: Denies chest pain Respiratory Respiratory: Denies shortness of breath, Denies chest congestion, Denies cough, Denies stridor and Denies wheezing Gastrointestinal Gastrointestingal: Denies nausea or vomiting Musculoskeletal Musculoskeletal: Reports as per HPI Integumentary/Breasts Skin/Breast: Reports as per HPI, Reports redness and Denies rash Neurologic Neurologic: Denies dizziness and Denies paresthesias Allergic/Immunologic Allergic/Immunologic: Denies wheezing Physical Exam General General appearance: alert and in no apparent distress Head Head exam: atraumatic, normocephalic and normal inspec
[2022-06-25 09:07] LABS: UTC Pregnancy Test, Urine Negative (Negative)
[2022-06-25 10:50] VITALS: BP 137/72; PULSE 78; RESP 22; TEMP 36.6; O2SAT 94
== END 2022-06-25 10:50 | disposition home or self-care (01) ==
PROVIDERS: Emergency Provider Nurse Practitioner Family; PCP Nurse Practitioner Family
DX: M79.601 Pain in right arm (principal); M79.604 Pain in right leg; W10.9XXA Fall (on) (from) unspecified stairs and steps, initial encounter
CPT/HCPCS: 73080; 73090; 73110; 73502; 73552; 73562; 73590; 81025; 99213; 99214; G0463

== ENCOUNTER → 2022-07-25 08:30 | Outpatient (CLI) | payer BC, SELFPAY ==
--- NOTE | 2022-07-25 08:34 | XR_ITS ---
FINAL REPORT CLINICAL HISTORY: knee pain FINDINGS: Three views of the right knee were obtained. There is no acute osseous abnormality of the left knee. The joint space is preserved. 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 The soft tissues are normal. There is no joint effusion. IMPRESSION: No acute osseous abnormality of the right knee. Reviewed, Interpreted and Dictated by Valentine Pantoja MD Transcribed by Heather Genao Authenticated and [facility]
== END ==
LOC: RAD 08:32
PROVIDERS: PCP Nurse Practitioner Family; Visit Provider Orthopaedic Surgery
DX: M25.561 Pain in right knee (principal)
CPT/HCPCS: 73562

== ENCOUNTER 2024-09-14 11:00 | Outpatient (CLI) | payer SELFPAY ==
[2024-09-15 08:59] LABS: Coronavirus 19, PCR Not Detected (NotDetected); Influenza A, PCR Not Detected (NotDetected); Influenza B, PCR Not Detected (NotDetected)
== END 2024-09-14 23:59 | disposition home or self-care (01) ==
LOC: LAB.DROPOF 09-18 11:58
PROVIDERS: PCP Student in an Organized Health Care Education/Training Program; Visit Provider Student in an Organized Health Care Education/Training Program
DX: B34.9 Viral infection, unspecified (principal)
CPT/HCPCS: 87636